=== PATIENT | male | born 1965 | race Caucasian/White ===

== ENCOUNTER 2020-06-24 08:01 | Inpatient (IN) ==
--- NOTE | 2020-06-11 15:51 | PAT Medication Instructions ---
Medication Instructions Date of Service June 11, 2020 Home Medications gabapentin 600 mg PO TID metformin 500 mg PO BID naproxen [Naprosyn] 500 mg PO BID omeprazole 40 mg PO QAM ASK your surgeon for instructions naproxen [Naprosyn] 500 mg PO BID DO NOT take the morning of surgery metformin 500 mg PO BID Take morning of surgery With a small sip of water, OTHERWISE NOTHING TO EAT OR DRINK AFTER MIDNIGHT: gabapentin 600 mg PO TID omeprazole 40 mg PO QAM Take evening before surgery gabapentin 600 mg PO TID metformin 500 mg PO BID Other Notes If you have any questions please call us at [phone] or [phone] or [phone] or [phone]
--- NOTE | 2020-06-13 12:01 | Anesthesiology Consultation ---
Date of Service June 13, 2020 Assessment & Plan (1) Encounter for pre-operative examination: Chart Review Chart Review: Acceptable Risk for Surgery (pending preop Covid testing ) and Patient seen in Pre Admission Testing - Check BSG AM DOS Per PAT appt on 06/13/20, patient denies any recent travel or large group activities. No known Covid positive contacts or Covid related symptoms. No known Covid infection in the past 90 days. Preop Covid testing scheduled 06/18/20= will await results. Educated on importance of self quarantining, social distancing and wearing mask in public both for the patient and household contacts. Teaching & Discussion Pre-Anesthesia Teaching/Discussion Notes: Instructed NPO after midnight before surgery,except medications with 15 cc of water. Medication instructions provided according to the [facility] guidelines. History Surgery Operation Date: 06/24/20 09:00 Proposed Procedures p Right Anterior Total Hip Arthroplasty - Henrry Luna DO Height/Weight Height: 5 ft 8 in Weight: 116.8 kg Allergies Allergy/AdvReac Type Severity Reaction Status Date / Time No Known Allergies Allergy Verified 06/10/20 08:01 Medications Home Medications Medication Instructions Recorded Confirmed Last Taken gabapentin 600 mg PO TID 06/10/20 06/10/20 Unknown metformin 500 mg PO BID 06/10/20 06/10/20 Unknown naproxen [Naprosyn] 500 mg PO BID 06/10/20 06/10/20 Unknown omeprazole 40 mg PO QAM 06/10/20 06/10/20 Unknown Past Medical History Medical History (Updated 06/14/20 @ 13:55 by Alice Azar PA-C) GERD (gastroesophageal reflux disease) Well controlled and stable Osteoarthritis Peripheral neuropathy Pre-diabetes On Metformin - Hgb A1C 06/13/20 was 7.0 (DIABETIC RANGE) Exercise / Class Metabolic Activity II 4-5 Yardwork/Stairs/Walk up hill (one flight of stairs- no chest pain or SOB ) Past Family History Family History Other No family history of adverse response to anesthesia Past Surgical History Surgical History History of arthroscopy RT KNEE History of colonoscopy History of tooth extraction Past Anesthesia History No Hx of Anesthesia Complications and No Family Hx of Anesthesia Complications History of PONV No Hx of PONV and No Hx of Motion Sickness Social History Smoking Status: Current every day smoker tobacco type: cigarettes and smokeless tobacco Smoking cigarettes per day: 10 CIG DAILY Do You Dip or Chew Tobacco: Yes (1 CAN EVERY 2 DAYS) Hx Alcohol Use: Yes Alcohol type: beer alcohol intake frequency: holidays/special occasions only Hx Substance Use: No substance use type: does not use Review of Systems Occ snoring - no witnessed apnea- no hx of sleep study Patient denies chest pain, shortness of breath, dyspnea on exertion, cough, wheezing, palpitations. No hx of seizures, stroke, IA. No hx of blood clots or blood transfusions Physical Exam Vital Signs VITALS BP 147/87 P 68 TEMP 98.3 SP02 96% RESP 16 Constitutional no acute distress ENMT Mouth: no TMJ clicking Thyromental Distance: > or= 3.5 Finger Breadths (4.0) Mallampati Class: II Missing most teeth Neck + limited neck extension (mild ) and + facial hair (minimal- did encourage pt to keep trimmed ) Respiratory normal respiratory effort; no respiratory distress Auscultation: lungs clear to auscultation bilaterally; no wheezes Cardiovascular Rate/Rhythm: regular rate and regular rhythm Heart Sounds: no murmur Vessels: no carotid bruit Musculoskeletal Spine: no pain with cervical ROM Extremities: extremities normal to inspection Psychiatric Orientation: alert Testing Laboratory Results 06/13/20 12:10 06/13/20 12:10 PT 10.0 Seconds (9.0-12.0) 06/13/20 12:10 INR 1.0 (0.9-1.1) 06/13/20 12:10 APTT 24.9 Seconds (21.0-31.0) 06/13/20 12:10 Hemoglobin A1c 7.0 % (4.5-5.6) H 06/13/20 12:10 Urine Color Yellow 06/13/20 Unknown Urine Appearance Clear (Clear) 06/13/20 Unknown Urine pH 5.0 (4.5-7.5) 06/13/20 Unknown Ur Specific [place] 1.031 (1.000-1.030) H 06/13/20 Unknown Urine Protein Negative (Negative) 06/13/20 Unknown Urine Glucose (UA) Negative (Negative) 06/13/20 Unknown Urine Ketones Negative (Negative) 06/13/20 Unknown Urine Nitrite Negative (Negative) 06/13/20 Unknown Ur Leukocyte Esterase Negative (Negative) 06/13/20 Unknown Blood Type O Positive 06/13/20 12:10 Antibody Screen NEGATIVE 06/13/20 12:10 Electrocardiogram Date: 06/13/20 Findings: + SB @ (58bpm) Otherwise normal EKG. Chest X-Ray Date: 06/13/20 Findings: + NAD
--- NOTE | 2020-06-13 12:29 | XRay Report ---
TWO VIEW CHEST CLINICAL HISTORY: Preoperative examination. FINDINGS: PA and lateral chest radiographs are obtained. No prior studies are available for compariso n at the time of dictation. The cardiomediastinal silhouette is unremarkable. The lungs and pleural spaces are clear. There is no pneumothorax. The bony thorax appears intact. Degenerative change is n oted in the thoracic spine. IMPRESSION: No active disease in the chest. ACT 112: Negative or not required by law. Electronically signed by: Lenny Pollack M.D. 06/13/2020 12:27 PM
[2020-06-13 12:40] LABS: Basophils # (auto) 0.03 K/uL (0-0.2); Basophils % (auto) 0.4 %; Eosinophils # (auto) 0.23 K/uL (0-0.5); Eosinophils % (auto) 2.8 %; Hemoglobin 14.3 g/dL (14.0-18.0); Immature Granulocytes # (auto) 0.02 K/uL (0.00-0.02); Immature Granulocytes % (auto) 0.2 %; Lymphocytes # (auto) 2.47 K/uL (1.2-3.4); Lymphocytes % (auto) 29.9 %; Mean Corpuscular Hemoglobin 32.7 pg (25-34); Mean Corpuscular Hgb Conc 35.8 g/dL (32-36); Mean Corpuscular Volume 91.5 fL (80-100); Monocytes # (auto) 0.97 K/uL (0.11-0.59); Monocytes % (auto) 11.7 %; Neutrophils # (auto) 4.54 K/uL (1.4-6.5); Platelet Count 247 K/uL (130-400); RDW Coefficient of Variation 13.6 % (11.5-14.5); RDW Standard Deviation 45.7 fL (36.4-46.3); Red Blood Count 4.37 M/uL (4.7-6.1); White Blood Count 8.26 K/uL (4.8-10.8)
[2020-06-13 12:44] LABS: Appearance Urine Clear (Clear); Bilirubin Urine Negative (Negative); Blood Urine Negative (Negative); Color Urine Yellow; Glucose Urine UA Negative (Negative); Ketones Urine Negative (Negative); Leukocyte Esterase Urine Negative (Negative); Nitrite Urine Negative (Negative); Protein Urine Negative (Negative); Specific Gravity Urine 1.031 (1.000-1.030); Urobilinogen Urine Negative (Negative)
[2020-06-13 12:51] LABS: Partial Thromboplastin Ratio 0.9; Partial Thromboplastin Time 24.9 Seconds (21.0-31.0)
[2020-06-13 12:59] LABS: Estimated Average Glucose 154 mg/dl
[2020-06-13 13:09] LABS: BUN Creatinine Ratio 21.8 (10-20); Calcium 8.8 mg/dl (8.5-10.1); Est GFR (African American) 96.8; Est GFR (Non-African American) 83.5
--- NOTE | 2020-06-14 12:53 | Electrocardiogram Report ---
Test Reason : Blood Pressure : / mmHG Vent. Rate : 058 BPM Atrial Rate : 058 BPM P-R Int : 134 ms QRS Dur : 104 ms QT Int : 410 ms P-R-T Axes : 055 081 080 degrees QTc Int : 402 ms Sinus bradycardia Otherwise normal ECG No previous ECGs available Confirmed by Glenn Ledezma ([id number]) on 06/14/2020 12:52:50 PM Referred By: Henrry Luna Confirmed By:Glenn Ledezma
--- NOTE | 2020-06-22 21:15 | History & Physical Report ---
Date of Service June 24, 2020 Assessment & Plan (1) Degenerative joint disease of right hip: I have indicated the patient for right anterior total hip replacement. The risks, benefits and complications of surgery were explained to the patient which include but not limited to infection, acute blood loss, DVT/PE, injury to nerves, vessels, bone, soft tissue, arthrofibrosis, chronic pain, failure of the prosthesis, hip dislocation, leg length discrepancy, need for additional surgery, cardiac and pulmonary events and . The patient wished to proceed with surgery and informed consent was obtained at this time. We will plan for 81mg ASA BID post-operatively for DVT prophylaxis. Upon discharge the patient will be discharged home with home health services. Appropriate clearances by PCP were obtained. History of Present Illness Chief Complaint: Right hip pain/DJD/AVN Primary Care Provider: CALI PCP The patient is a 55 year old male who presents with complaints of severe right hip pain and DJD. The patient has failed outpatient conservative treatments to this point which included NSAIDs, IA corticosteroid injection, home exe rcise/walking program. The patient's pain and limited function have progressed to the point where they severely hinder their activities of daily living and they no longer tolerate exercise programs. They are requesting to proceed with total hip replacement surgery. Allergies Allergy/AdvReac Type Severity Reaction Status Date / Time No Known Allergies Allergy Verified 06/24/20 08:47 Home Medications Medication Instructions Recorded Confirmed Type gabapentin 600 mg PO TID 06/10/20 06/24/20 History metformin 500 mg PO BID 06/10/20 06/24/20 History naproxen [Naprosyn] 500 mg PO BID 06/10/20 06/24/20 History omeprazole 40 mg PO QAM 06/10/20 06/24/20 History Past Med/Surg History Medical History GERD (gastroesophageal reflux disease) Well controlled and stable Obesity Osteoarthritis Peripheral neuropathy Pre-diabetes On Metformin - Hgb A1C 06/13/20 was 7.0 (DIABETIC RANGE) Surgical History History of arthroscopy RT KNEE History of colonoscopy History of tooth extraction Family History Other No family history of adverse response to anesthesia Social History Smoking Status: Current every day smoker Cigarettes Per Day: 10 CIG DAILY; Second Hand Exposure: Yes ( SMOKES); Do You Dip or Chew Tobacco: Yes (1 CAN EVERY 2 DAYS); Tobacco Cessation Education Requested by Patient: No Hx Alcohol Use: Yes Alcohol type: beer Hx Substance Use: No Preferred Language: Setswana Director Housekeeping Required: No Beliefs That Will Affect Care: None Current Living Situation: Family Current Living Situation Comment: AND SON Feels Safe at Home: Yes Safety Concerns: Feels Safe At This Time Assistive Devices: None Review of Systems Review of Systems: All systems reviewed & are unremarkable except as noted in HPI & below Constitutional: as per Subjective / HPI Physical Exam Physical Exam: RLE NVSI +EHL/FHL/TA/GS SILT grossly, +2 DP pulse, compartments soft NT, limited painful ROM of the hip, antalgic gait. Results & Data Results & Data ([facility]) Diagnostic Findings Multiple views of the hip demonstrates severe DJD with complete loss of the joint space and AVN of the femoral head. +osteophytes, +sclerosis, +subchondral cysts. Pre Admission Testing Addendum Laboratory Results 06/13/20 12:10 06/13/20 12:10 PT 10.0 Seconds (9.0-12.0) 06/13/20 12:10 INR 1.0 (0.9-1.1) 06/13/20 12:10 APTT 24.9 Seconds (21.0-31.0) 06/13/20 12:10 Hemoglobin A1c 7.0 % (4.5-5.6) H 06/13/20 12:10 Urine Color Yellow 06/13/20 Unknown Urine Appearance Clear (Clear) 06/13/20 Unknown Urine pH 5.0 (4.5-7.5) 06/13/20 Unknown Ur Specific [place] 1.031 (1.000-1.030) H 06/13/20 Unknown Urine Protein Negative (Negative) 06/13/20 Unknown Urine Glucose (UA) Negative (Negative) 06/13/20 Unknown Urine Ketones Negative (Negative) 06/13/20 Unknown Urine Nitrite Negative (Negative) 06/13/20 Unknown Ur Leukocyte Esterase Negative (Negative) 06/13/20 Unknown Blood Type O Positive 06/13/20 12:10 Antibody Screen NEGATIVE 06/13/20 12:10
[~2020-06-24 08:01] MED LIST: ACETAMINOPHEN 500 MG TAB PO SCH; CeleBREX 200 MG CAP PO SCH; FAMOTIDINE 20 MG TAB PO SCH; GABAPENTIN 900 MG DOSE PO SCH; LR 500ML BOLUS, THEN 15ML/HR IV SCH; METOCLOPRAMIDE HCL 10 MG TABLET PO SCH; ROPIVACAINE 0.5% HCL/PF 150 MG, BUPIVACAINE 0.75% MPF 20 ML, EPINEPHrine 30MG/30ML (OR ... INFIL SCH; TRANEXAMIC ACID 1,000 MG **IV Intra-op IV SCH; TRANEXAMIC ACID 1,000 MG **IV Pre-op IV SCH; ceFAZolin 2000MG 2,000 MG/15 ML SYR IV SCH
--- NOTE | 2020-06-24 09:30 | History & Physical Bridge Note ---
Date of Service June 24, 2020 History & Physical Bridge Note I have examined the patient, reviewed the History & Physical and in the interval since the performance of the History & Physical I have noted the following changes of clinical significance: no changes noted
[2020-06-24] MEDS ORDERED: PROPOFOL IV EMULSION 10 MG/ML 20 ML VIAL IV ONE ×6 (09:40→13:55)
[2020-06-24] MEDS ORDERED: LIDOCAINE HCL 2% 2 ML VIAL/AMP(20MG/ML) INFIL ONE (09:40)
[2020-06-24] MEDS ORDERED: MIDAZOLAM HCL 1 MG/ML 2ML VIAL ONE ×2 (09:41→12:46)
[2020-06-24] MEDS ORDERED: fentaNYL citrate 100 MCG/2 ML VIAL ONE ×2 (09:41→13:55)
[2020-06-24] MEDS ORDERED: ORTHO JOINT ANESTHETIC ONE (09:58)
[2020-06-24] MEDS ORDERED: BACITRACIN INJ 50,000 UNIT VIAL ONE (09:58)
[2020-06-24] MEDS ORDERED: PHENYLEPHRINE 100MCG/ML 5ML SYR IV PRN (10:00)
[2020-06-24] MEDS ORDERED: HYDROmorphone INJ 1 MG/ML SYRINGE IV PRN (10:00)
[2020-06-24] MEDS ORDERED: fentaNYL citrate 100 MCG/2 ML VIAL IV PRN (10:00)
[2020-06-24] MEDS ORDERED: MEPERIDINE HCL 25 MG/ML CARP/VIAL IV PRN (10:00)
[2020-06-24] MEDS ORDERED: LABETALOL HCL IV 5 MG/ML 20ML IV PRN (10:00)
[2020-06-24] MEDS ORDERED: ePHEDrine sulfate 50 MG/ML AMP IV PRN (10:00)
[2020-06-24] MEDS ORDERED: ATROPINE SULFATE 0.1 MG/ML 10ML SYR IV PRN (10:00)
[2020-06-24] MEDS ORDERED: ONDANSETRON INJ 2 MG/ML 2 ML VIAL IV PRN ×2 (10:00→15:50)
[2020-06-24] MEDS ORDERED: KETAMINE 50 MG/5 ML SYRINGE ONE (13:53)
--- NOTE | 2020-06-24 14:07 | Fluoroscopy Report ---
FL hip RT 1V CLINICAL HISTORY: RT ANTERIOR HIP COMPARISON STUDY: None. FLUOROSCOPY TIME: 1 minute and 21 seconds.. FINDINGS: 2 fluoroscopic spot images of the right hip demonstrate a right total hip arthroplasty. The hardware is intact. No fracture or dislocation. IMPRESSION: Fluoroscopy provided for right total hip arthroplasty. ACT 112: Negative or not required by law. Electronically signed by: Nahid Newsome M.D. 06/24/2020 2:06 PM
--- NOTE | 2020-06-24 14:09 | Post Operative Brief Note ---
Immediate Post Op Note v1 Date of Surgery June 24, 2020 Pre & Post Diagnosis Operation Date: 06/24/20 11:00 Pre-Op Diagnosis: Ostearthritis, Right Hip Post-Op Diagnosis: Ostearthritis, Right Hip I identified the patient and participated in the time-out.: Yes Procedure Operation Date: 06/24/20 11:00 Actual Procedures p Right Anterior Total Hip Arthroplasty(Right) - Henrry Luna DO Surgeon Henrry Luna DO Casino Operations Supervisor Jean-Paul Collins Estimated Blood Loss 235 Findings Consistent with Post-Op Diagnosis Specimens femoral head Anesthesia Type Spinal MAC Complications none Disposition Disposition: Recovery Room Overlapping Procedure I was present for: the critical portions of procedure. I was immediately available: during the entire case. Back up surgeon: was not required during procedure.
--- NOTE | 2020-06-24 14:11 | Operative Report ---
Post Operative Report Pre & Post Diagnosis Operation Date: 06/24/20 11:00 Pre-Op Diagnosis: Ostearthritis, Right Hip Post-Op Diagnosis: Ostearthritis, Right Hip I identified the patient and participated in the time-out.: Yes Procedure Operation Date: 06/24/20 11:00 Actual Procedures p Right Anterior Total Hip Arthroplasty(Right) - Henrry Luna DO Surgeon Henrry Luna DO Tour Sales Representative Jean-Paul Collins Estimated Blood Loss 235 Findings Consistent with Post-Op Diagnosis Specimens femoral head Anesthesia Type Spinal MAC Complications none Disposition Disposition: Recovery Room Indications The patient is a 55-year-old male who presents with severe progressive right hip DJD/AVN who has failed outpatient conservative treatments. I indicated the patient for a anterior total hip replacement and the risks and benefits were e xplained in detail which include but not limited to infection, bleeding, blood clot, damage to surrounding bone, nerves, vessels, soft tissue, hip dislocation, failure of the prosthesis, leg length discrepancy, need for additional surgery and . The patient agreed to proceed with replacement of the hip and informed consent was obtained. Appropriate clearances were obtained. Description of Procedure COMPONENTS USED: [employer] hip system: Acetabulum size 64, femur size 11 extended offset, femoral head 36+3.5, liner 64x36, acetabular screw 25 mm x 2. DESCRIPTION OF PROCEDURE: Following satisfactory spinal anesthesia, the patient was placed supine on the OR table. The left leg was placed in the well leg wright and the right leg in the traction device. The right leg was prepared with ChloraPrep and draped sterilely. A surgical timeout was performed, patient identified and site jim verified. Appropriate antibiotics were given. A standard anterior approach in the interval between the sartorius and tensor muscles was performed. Dissection was carried down through subcutaneous tissues. Electrocautery was utilized for hemostasis. Circumflex femoral vessels were identified, tied and ligated. The anterior capsular fat pad was removed and the capsulotomy was performed revealing the arthritic femoral neck and head. A femoral neck cut was made with reciprocating saw and the bone fragments removed. The acetabular self-retraining retractor was placed. Acetabular reaming was completed under fluoroscopic guidance, a 64 shell was impacted into an anatomic position and secured with a acetabular screw. Local anesthetic was placed and following irrigation, the polyethylene liner was placed. The femur was placed into position of external rotation, extension and adduction. Femoral canal was prepared up to the size 11 extended offset. Trial reduction with a 36+3.5 neck length head showed good soft tissue tension, leg lengths restored, and good fit and fill of the proximal canal using fluoroscopic landmarks. The hip was dislocated. The trial component was removed. The final implant was placed. The hip was irrigated with sterile saline solution and reduced. A Betadine soak was performed. After 3 minutes, the hip was once more irrigated with copious sterile saline solution with bacitracin. Jaimie-incisional soft tissue was injected utilizing [place] Orthomix which includes a combination of Ropivicaine 0.5% 150mg, Bupivicaine 0.5%/Epinephrine 1:200,000 30ml, Toradol 30mg, Dexamethasone 4mg, Ketamine 10mg, Clonidine 100mcg and NSS 30ml solution. The capsule was then closed with 1-0 Vicryl interrupted figure of eight sutures. The fascia was closed with a running suture of #1 Vicryl, the subcutaneous tissues with 2-0 Vicryl and the skin was closed with kiley and a sterile dry dressing was applied which included Angely incisional VAC. The patient tolerated the procedure well and was transported to PACU in stable condition. Due to the complex nature of the procedure, the entire surgery was performed with the operational assistance of Jean-Paul Collins PA-C. The title assistant, under direct supervision, was involved in the actual performance of all aspects of the surgical procedure including patient positioning, hemostasis, tissue retraction, instrument management and wound closure. I attest to the content of the Intraoperative Record and any orders documented therein. Any exceptions are noted below.
[2020-06-24] MEDS ORDERED: PHARMACY GLYCEMIC MGMT CONSULT PRN (14:49)
--- NOTE | 2020-06-24 14:53 | Anesthesiology Progress Note ---
Date of Service June 24, 2020 Anesthesia Post Procedure Vital Signs Vital Signs: Temp Pulse Pulse Resp BP Pulse Ox 06/24/20 14:50 63 16 122/79 98 06/24/20 14:40 70 12 131/85 99 06/24/20 14:34 36.3 C L 75 12 113/80 99 06/24/20 08:49 36.5 C 56 L 20 143/89 H 96 Pain Intensity Right Hip: Pain Intensity: 0 Transfer of Care Handoff Completed per policy Notes Mental Status: alert / awake / arousable and participated in evaluation Patient Amnestic to Procedure: Yes Nausea / Vomiting: adequately controlled Pain: adequately controlled Airway Patency, RR, SpO2: stable & adequate BP & HR: stable & adequate Hydration State: stable & adequate Neuraxial Anesthesia: was administered and sensory block is resolving Anesthetic Complications: no major complications apparent and Pt Satisfied with anesthetic care
[2020-06-24] MEDS ORDERED: GLUCOSE 10 TABS/TUBE PO PRN (15:00)
[2020-06-24] MEDS ORDERED: DEXTROSE 50% 50 ML SYRINGE IV PRN (15:00)
[2020-06-24] MEDS ORDERED: GLUCAGON FOR INJ 1 MG VIAL IM PRN (15:00)
[2020-06-24] MEDS ORDERED: CARBOHYDRATES FOR HYPOGLYCEMIA PO PRN (15:00)
[2020-06-24] MEDS ORDERED: GLUCOSE 40% GEL 15 GM TUBE PO PRN (15:00)
--- NOTE | 2020-06-24 15:10 | XRay Report ---
XR hip 1V RT w pelvis HISTORY: 55 years-old Male IN PACU - A/P PELVIS and LATERAL HIP right hip total joint arthroplasty COMPARISON: Fluoroscopic images of the right hip of same day TECHNIQUE: AP view of the pelvis with 2 views of the right hip FINDINGS: Right hip total joint arthroplasty demonstrates satisfactory alignment. No acute fracture or retained opaque foreign body identified. Associated postsurgical soft tissue swelling and deep tissue air. Ov erlying skin kiley are noted along with surgical drainage catheter.. IMPRESSION: Right hip total joint arthroplasty with expected postoperative changes. ACT 112: Negative or not required by law. The above report was generated using voice recognition software. It may contain grammatical, syntax o r spelling errors. Electronically signed by: Emiliano Lopez M.D. 06/24/2020 3:08 PM
[2020-06-24] MEDS ORDERED: bisacodyL 10 MG SUPP PR PRN (15:50)
[2020-06-24] MEDS ORDERED: SODIUM CHLORIDE 0.9% 1000ML 1,000 ML IV SCH (15:50)
[2020-06-24] MEDS ORDERED: METOCLOPRAMIDE HCL INJ 5 MG/ML 2 ML VIAL IV PRN (15:50)
[2020-06-24] MEDS ORDERED: diphenhydrAMINE Capsule 25 MG CAP PO PRN (15:50)
[2020-06-24] MEDS ORDERED: NALOXONE HCL 0.4 MG/1 ML VIAL/CARP IV PRN (15:50)
[2020-06-24] MEDS ORDERED: MAGNESIUM HYDROXIDE SUSP 30 ML UDC PO PRN (15:50)
[2020-06-24] MEDS: KETOROLAC TROMETHAMINE 15 MG/ML VIAL IV SCH ×2 (16:50→22:42)
--- NOTE | 2020-06-24 17:01 | Orthopedic Progress Note ---
Date of Service June 24, 2020 Assessment & Plan (1) Degenerative joint disease of right hip: Status post right anterior total hip arthroplasty Ancef x24 DVT prophylaxis: SCDs, teds, 81 mg ASA twice daily Weight-bear as tolerates right lower extremity PT/OT Postoperative x-ray demonstrates well aligned well fixed prosthesis without fracture or dislocation A.m. labs DC planning Admission and Anticipated Discharge Date Admission Date: June 24, 2020 Subjective Post Operative Progress Note Patient seen sitting up in bed, comfortable, denies complaints, pain well controlled, no acute issues. Review of Systems Review of Systems: All systems reviewed & are unremarkable except as noted in HPI & below Constitutional: as per Subjective / HPI Physical Exam Physical Exam: RLE NVSI +EHL/FHL/TA/GS SILT grossly, +2 DP pulse, compartments soft NT, dressing cdi. Constitutional: WD/WN, vitals as above Results & Data ([facility]) Vital Signs (Past 12 Hours) Vital Signs Temp Pulse Pulse Resp BP Pulse Ox 06/24/20 16:10 56 L 16 156/94 H 98 06/24/20 15:40 36.3 C L 60 16 133/78 96 06/24/20 15:25 62 15 127/86 95 06/24/20 15:20 76 15 121/81 95 06/24/20 15:10 36.5 C 66 16 123/77 97 06/24/20 15:00 73 15 155/84 H 100 06/24/20 14:50 63 16 122/79 98 06/24/20 14:40 70 12 131/85 99 06/24/20 14:34 36.3 C L 75 12 113/80 99 06/24/20 08:49 36.5 C 56 L 20 143/89 H 96
[2020-06-24] MEDS: oxyCODONE HCL IR 5 MG TAB (IMMEDIATE RELEASE) PO PRN ×2 (17:18→20:55)
[2020-06-24] MEDS: INSULIN ASPART 100 UNITS/ML 3 ML PEN SC SCH ×2 (18:05→21:07)
[2020-06-24] MEDS: HYDROmorphone INJ 0.5 MG/0.5 ML SYR IV PRN ×2 (18:13→22:42)
[2020-06-24] MEDS: ceFAZolin 2000MG 2,000 MG/15 ML SYR IV SCH (19:52)
[2020-06-24] MEDS: GABAPENTIN 600 MG TAB PO SCH (20:55)
[2020-06-24] MEDS: DOCUSATE SODIUM 100 MG CAP PO SCH (20:55)
[2020-06-24] MEDS: ACETAMINOPHEN 500 MG TAB PO SCH (20:56)
[2020-06-24] MEDS ORDERED: SENNA 8.6 MG TAB PO SCH (21:00)
[2020-06-24] MEDS ORDERED: LANTUS PER UNIT CHARGE SQ SCH (21:00)
[2020-06-25] MEDS: oxyCODONE HCL IR 5 MG TAB (IMMEDIATE RELEASE) PO PRN ×4 (02:49→15:46)
[2020-06-25] MEDS: ceFAZolin 2000MG 2,000 MG/15 ML SYR IV SCH (03:32)
[2020-06-25] MEDS: HYDROmorphone INJ 0.5 MG/0.5 ML SYR IV PRN (05:34)
[2020-06-25] MEDS: ACETAMINOPHEN 500 MG TAB PO SCH ×2 (05:34→13:40)
[2020-06-25] MEDS: KETOROLAC TROMETHAMINE 15 MG/ML VIAL IV SCH ×2 (05:34→10:54)
[2020-06-25 06:17] LABS: Basophils # (auto) 0.01 K/uL (0-0.2); Basophils % (auto) 0.1 %; Eosinophils # (auto) 0.06 K/uL (0-0.5); Eosinophils % (auto) 0.4 %; Hematocrit (blood only) 34.6 % (42-52); Hemoglobin 11.9 g/dL (14.0-18.0); Immature Granulocytes # (auto) 0.03 K/uL (0.00-0.02); Immature Granulocytes % (auto) 0.2 %; Lymphocytes # (auto) 1.83 K/uL (1.2-3.4); Lymphocytes % (auto) 13.3 %; Mean Corpuscular Hemoglobin 31.8 pg (25-34); Mean Corpuscular Hgb Conc 34.4 g/dL (32-36); Mean Corpuscular Volume 92.5 fL (80-100); Mean Platelet Volume 8.7 fL (7.4-10.4); Monocytes # (auto) 1.25 K/uL (0.11-0.59); Monocytes % (auto) 9.1 %; Neutrophils # (auto) 10.53 K/uL (1.4-6.5); Neutrophils % (auto) 76.9 %; Platelet Count 209 K/uL (130-400); RDW Coefficient of Variation 13.7 % (11.5-14.5); RDW Standard Deviation 46.3 fL (36.4-46.3); Red Blood Count 3.74 M/uL (4.7-6.1); White Blood Count 13.71 K/uL (4.8-10.8)
[2020-06-25 06:43] LABS: BUN Creatinine Ratio 16.6 (10-20); Calcium 8.5 mg/dl (8.5-10.1); Creatinine Clr Calc Pharmacy 112.7 ml/min; Est GFR (African American) 93.5; Est GFR (Non-African American) 80.7
[2020-06-25] MEDS: GABAPENTIN 600 MG TAB PO SCH ×2 (07:35→13:40)
[2020-06-25] MEDS: DOCUSATE SODIUM 100 MG CAP PO SCH (07:35)
[2020-06-25] MEDS: INSULIN ASPART 100 UNITS/ML 3 ML PEN SC SCH ×2 (08:29→12:39)
[2020-06-25] MEDS ORDERED: ASPIRIN 81 MG ECTAB PO SCH (09:00)
[2020-06-25] MEDS ORDERED: MULTIVITAMIN TAB PO SCH (09:00)
[2020-06-25] MEDS ORDERED: PANTOprazole 40 MG TAB PO SCH (09:00)
--- NOTE | 2020-06-25 09:16 | Orthopedic Progress Note ---
Date of Service June 25, 2020 Assessment & Plan (1) Degenerative joint disease of right hip: Status post right anterior total hip arthroplasty POD#1 Ancef x24 DVT prophylaxis: SCDs, teds, 81 mg ASA twice daily Weight-bear as tolerates right lower extremity PT/OT Postoperative x-ray demonstrates well aligned well fixed prosthesis without fracture or dislocation A.m. labs - as above, hgb 11.9 DC planning - home with HH Admission and Anticipated Discharge Date Admission Date: June 24, 2020 Subjective Post Operative Progress Note Patient seen sitting up in bed, comfortable, denies complaints, patient admits to 7 out of 10 pain however is controlled with pain medication, no acute issues. Denies F/C/N/V/SOB/CP. Review of Systems Review of Systems: All systems reviewed & are unremarkable except as noted in HPI & below Constitutional: as per Subjective / HPI Physical Exam Physical Exam: RLE NVSI +EHL/FHL/TA/GS SILT grossly, +2 DP pulse, compartments soft NT, dressing cdi. Constitutional: WD/WN, vitals as above Results & Data ([facility]) Vital Signs (Past 12 Hours) Vital Signs Temp Pulse Resp BP Pulse Ox 06/25/20 07:05 36.7 C 65 16 122/76 95 06/25/20 02:41 36.8 C 79 17 118/74 96 06/24/20 22:39 36.8 C 75 16 142/88 H 97 Diagnostic Findings 06/25/20 06/25/20 06/25/20 Range/Units 08:05 06:03 06:03 WBC 13.71 H (4.8-10.8) K/uL RBC 3.74 L (4.7-6.1) M/uL Hgb 11.9 L (14.0-18.0) g/dL Hct 34.6 L (42-52) % MCV 92.5 (80-100) fL MCH 31.8 (25-34) pg MCHC 34.4 (32-36) g/dL RDW Std Deviation 46.3 (36.4-46.3) fL RDW Coeff of Kim 13.7 (11.5-14.5) % Plt Count 209 (130-400) K/uL MPV 8.7 (7.4-10.4) fL Immature Gran % (Auto) 0.2 % Neut % (Auto) 76.9 % Lymph % (Auto) 13.3 % [place] % (Auto) 9.1 % Eos % (Auto) 0.4 % Baso % (Auto) 0.1 % Neut # (Auto) 10.53 H (1.4-6.5) K/uL Lymph # (Auto) 1.83 (1.2-3.4) K/uL [place] # (Auto) 1.25 H (0.11-0.59) K/uL Eos # (Auto) 0.06 (0-0.5) K/uL Baso # (Auto) 0.01 (0-0.2) K/uL Immature Gran # (Auto) 0.03 H (0.00-0.02) K/uL Sodium 137 (136-145) mmol/L Potassium 4.0 (3.5-5.1) mmol/L Chloride 106 (98-107) mmol/L Carbon Dioxide 26 (21-32) mmol/L Anion Gap 5.0 (3-11) BUN 17 (7-18) mg/dl Creatinine 1.05 (0.6-1.4) mg/dl Est Cr Clr Drug Dosing 112.7 ml/min Est GFR ( Amer) 93.5 Est GFR (Non-Af Amer) 80.7 BUN/Creatinine Ratio 16.6 (10-20) Glucose 154 H (70-99) mg/dl POC Glucose 191 H (70-99) mg/dl Calcium 8.5 (8.5-10.1) mg/dl 06/24/20 06/24/20 Range/Units 20:43 16:27 WBC (4.8-10.8) K/uL RBC (4.7-6.1) M/uL Hgb (14.0-18.0) g/dL Hct (42-52) % MCV (80-100) fL MCH (25-34) pg MCHC (32-36) g/dL RDW Std Deviation (36.4-46.3) fL RDW Coeff of Kim (11.5-14.5) % Plt Count (130-400) K/uL MPV (7.4-10.4) fL Immature Gran % (Auto) % Neut % (Auto) % Lymph % (Auto) % [place] % (Auto) % Eos % (Auto) % Baso % (Auto) % Neut # (Auto) (1.4-6.5) K/uL Lymph # (Auto) (1.2-3.4) K/uL [place] # (Auto) (0.11-0.59) K/uL Eos # (Auto) (0-0.5) K/uL Baso # (Auto) (0-0.2) K/uL Immature Gran # (Auto) (0.00-0.02) K/uL Sodium (136-145) mmol/L Potassium (3.5-5.1) mmol/L Chloride (98-107) mmol/L Carbon Dioxide (21-32) mmol/L Anion Gap (3-11) BUN (7-18) mg/dl Creatinine (0.6-1.4) mg/dl Est Cr Clr Drug Dosing ml/min Est GFR ( Amer) Est GFR (Non-Af Amer) BUN/Creatinine Ratio (10-20) Glucose (70-99) mg/dl POC Glucose 148 H 108 H (70-99) mg/dl Calcium (8.5-10.1) mg/dl
--- NOTE | 2020-06-25 09:50 | Pharmacy Report ---
Pharmacy Glycemic Short Note 2 - Date of Service June 25, 2020 - Glycemic Short BSG Results (Last 24 hours): 06/24/20 06/24/20 06/25/20 16:27 20:43 06:03 Glucose 154 H POC Glucose 108 H 148 H 06/25/20 08:05 Glucose POC Glucose 191 H OUTPATIENT ANTIDIABETIC REGIMEN: * Metformin 500mg PO BIDM * A1c = 7% on 06/13/20 ASSESSMENT: * 55yo T2DM male with adequate outpatient control per recent A1c * Pt is maintained on oral antidiabetic agents as an outpatient * Oral agents are not recommended for inpatient use d/t drug interactions, changing PO intake, and difficulty titrating for acute hyper/hypoglycemia. ADA recommends re-initiating outpatient oral agents 1-2 days prior to discharge if/when appropriate if they were held on admission. * Will hold oral agents for admission and utilize SQ basal bolus insulin regimen which is the recommended regimen for inpatient glycemic control. * Will initiate weight based insulin dosing for insulin claude patient and titrate based on BSG trends. * Basal insulin held last evening for BSG < 180 mg/dl * Will re-initiate metformin today as pt tolerating PO and renal function WNL * Goal is to maintain BSGs <200 mg/dl (ideally <150 mg/dl) to prevent post op complications PLAN FOR INPATIENT GLYCEMIC CONTROL: * Held metformin POD#0 * Resume Metformin POD#1 PM * Basal insulin * N/A; held last evening when BSG < 180 * not needed today since pt dc home today * Bolus insulin * NovoLog per scale ACHS or Q6hrs while NPO * Goal Range: Low 110 mg/dL - High 140 mg/dL * Correction Factor: 25 mg/dL/unit * Nutritional / Prandial insulin per carb ratio of 1 unit per 8 grams CHO consumed PLAN FOR DISCHARGE: * Resume metformin
[2020-06-25] MEDS ORDERED: metFORMIN HCL 500 MG TAB PO SCH (17:00)
--- NOTE | 2020-06-25 17:23 | Discharge Summary ---
Date of Service June 25, 2020 Admission HPI Per Admitting Provider The patient is a 55 year old male who presents with complaints of severe right hip pain and DJD. The patient has failed outpatient conservative treatments to this point which included NSAIDs, IA corticosteroid injection, home exercise/walking program. The patient's pain and limited function have progressed to the point where they severely hinder their activities of daily living and they no longer tolerate exercise programs. They are requesting to proceed with total hip replacement surgery. Principal Diagnosis Right anterior total hip replacement -Right hip DJD/AVN Discharge Exam RLE NVSI +EHL/FHL/TA/GS SILT grossly, +2 DP pulse, compartments soft NT, dressing cdi. Constitutional WD/WN, vitals as above Discharge Data Allergies Allergy/AdvReac Type Severity Reaction Status Date / Time No Known Allergies Allergy Verified 06/24/20 08:47 Procedures Performed Operation Date: 06/24/20 11:00 Actual Procedures p Right Anterior Total Hip Arthroplasty(Right) - Henrry Luna DO Ordered Studies 06/24/20 11:00 FL fluoroscopy <1hr Routine FL hip RT 1V Routine Hospital Course (1) Degenerative joint disease of right hip: The patient is a 55 -year-old male who presents with long standing history of severe right hip DJD/AVN and failed outpatient conservative treatments. The patient's symptoms have progressed to the point where it has been difficult to perform even normal activities of daily living. I indicated the patient for a right anterior total hip arthroplasty, the risks, benefits and complications of the procedure include but not limited to infecti on, bleeding, damage to bone, nerves, vessels, surrounding soft tissue, may develop blood clots, loss of function, leg length discrepancy, dislocation, failure of the components, loosening of the components, the need for additional surgery and . The patient wished to proceed with surgery at this time and informed consent was obtained. Hospital Course: On 06/24/20 the patient was taken to the operating room, adequate anesthesia administered and underwent a right anterior total hip arthroplasty. The patient tolerated the procedure well and was taken to the PACU in stable condition. P ost-operatively the patient was started on a DVT ppx medication and given appropriate IV antibiotics. Consults were placed to physical therapy, occupational therapy and case management. On POD#1, the patient did well overnight and their pain was well controlled. Labs were drawn and the Hgb was 11.9. The patient progressed well with PT. Dressings were changed at this time and the incision was clean, dry and intact. On POD#2, The patients hospital stay was relatively uneventful and they were deemed stable by the orthopedic team and consultants to be discharged home with HH on 06/25/20. Discharge Instructions: Upon discharge the patient may weight bear as tolerates through their operative extremity. They were instructed to keep the incision clean and dry at all times. The patient may shower but should not submerge the incision, avoid bathing, pools and hot tubs. The patient was given a script for pain medication and should take as instructed. The patient was given a script for DVT ppx 81mg ASA BID and should take as directed. The patient was instructed to not drive or travel for long distances until cleared to do so. If the patient develops any symptoms of fevers, chills, nausea, vomiting, increased redness, swelling, pain or drainage from the surgical site, they should notify the office and/or proceed to the nearest emergency room. The patient should follow up in 10-14 days after surgery for their routine post-operative follow-up appointment and should call the office, to confirm the date and time. Status post right anterior total hip arthroplasty POD#1 Ancef x24 DVT prophylaxis: SCDs, teds, 81 mg ASA twice daily Weight-bear as tolerates right lower extremity PT/OT Postoperative x-ray demonstrates well aligned well fixed prosthesis without fracture or dislocation A.m. labs - as above, hgb 11.9 DC planning - home with Total Time Total Time Spent Total Time Spent (In Minutes): 30 Discharge Plan Discharge Items Patient Disposition: Home - Home Health Services Reason For Visit: Ostearthritis, Right Hip Discharge Diagnosis: Right anterior total hip replacement Condition on Discharge: Good Activity: Per Instructions section Lifting: Wait until after follow-up appointment Bathing: Keep incision dry Bathing Comment: No bathing, pools or hot tubs. Sexual Activity: Wait until after follow-up appointment Exercise/Sports: Wait until after follow-up appointment Driving/Machine Use: No driving. Weightbearing: Full weightbearing Non-emergency contact: Primary Care Provider and Surgeon Call non-emergency contact if: you have any medication questions, your symptoms worsen, your pain is not controlled, your pain is worsening, your pain is unusual for you, your pain is concerning for you, you have a fever, your temperature is above 101, your wound has increased redness, your wound has increased drainage and your wound pain has increased Follow-up/Referrals: PCP,NO [Primary Care Provider] - Diet: Carb Consistent or DM2 Addtl Attending Provider Instructions: ACTIVITY RECOMMENDATIONS: SELF CARE INSTRUCTIONS AFTER TOTAL HIP REPLACEMENT : Direct Anterior Approach Until the incision and soft tissues around your hip have healed, there is a possibility that the hip prosthesis could dislocate. A. Hip flexion ( Up & Down out of chair or steps ) may be difficult. This is normal. B. Numbness in front of the thigh is also normal for a few weeks. C. Use hand rails when walking on stairs. D. Wear low heeled shoes with non-slip soles. E. Be sure that your floors are free of things that could trip you - throw rugs, electrical cords, small objects. Avoid wet and waxed floors, especially with crutches and canes. F. Try to walk several times a day with rest periods between. G. Continue with all the exercises taught to you in the hospital. Again, make walking a part of your daily routine. SPECIAL CARE INSTRUCTIONS: VERY IMPORTANT TO READ AND REVIEW A. You may still be at risk for phlebitis and blood clots. 1. Wear surgical stockings (FLORI hose) for 2 weeks after surgery to improve circulation and reduce swelling. 2. Take Aspirin 81mg twice daily for 4 weeks or as directed by your doctor. This is your blood thinner. 3. High risk patients may be prescribed a stronger blood thinner if necessary. 4. If you are on Coumadin normally, your family doctor/rope tier should monitor your blood work. Expect a phone call the day of or the day after bloodwork is drawn to adjust your dosage. B. You must take antibiotics before having dental work, bladder, bowel and other surgery. Your doctor will provide you with a permanent card to carry describing precautions. C. Call [facility] if you have a fever, redness or swelling around the incision, cloudy drainage from incision, or sudden increase in pain in your hip, not relieved by your regular pain medication. D. Please call the office at if you have any concerns or questions about your operation or recovery. * YOU MAY SHOWER, NO TUB BATHS UNTIL CLEARED BY YOUR DOCTOR. - Keep an extra close eye on the top portion of your incision. Be sure to keep clean & dry. * WEAR FLORI HOSE 20 HOURS PER DAY FOR 2 WEEKS. * YOU MAY PROGRESS FROM A WALKER, TO A CANE, TO INDEPENDENT AT YOUR OWN PACE. * MOST PATIENTS WILL HAVE HOME NURSING FOR THERAPY. IF YOU DECIDE TO DO OUTPATIENT PHYSICAL THERAPY, PLEASE SCHEDULE THIS 3 TIMES PER WEEK. *PREVENA incisional vac is a special dressing covering your incision. This dressing provides a sterile dry environment while you are healing. The dressing is to be left in place for 7 days post-operatively. Your home nurse or surgeon will remove. If you develop any redness or blisters or have any questions notify your surgeon immediately. FOLLOW UP VISIT: If appointment is not already scheduled: Please call [facility] to make a follow-up appointment for 2 weeks after your surgery at . Pending Studies at Discharge: No Stand-Alone Forms: My [facility], Opioid Pain Management, Smoking Cessation Medications and DC Order Prescriptions: New acetaminophen 500 mg Tablet 1,000 mg PO Q8 PRN (Reason: fever or pain) Qty: 90 RF: 0 aspirin 81 mg Tablet,Delayed Release (Dr/Ec) 81 mg PO BID Qty: 56 RF: 0 celecoxib [Celebrex] 200 mg Capsule 200 mg PO BID PRN (Reason: pain/inflammation) Qty: 28 RF: 0 oxycodone 5 mg Tablet 5 mg PO Q6H MDD 4 PRN (Reason: pain) Qty: 30 RF: 0 sennosides [Senokot] 8.6 mg Tablet 17.2 mg PO HS PRN (Reason: constipation) Qty: 28 RF: 0 Continued metformin 500 mg Tablet 500 mg PO BID RF: 0 gabapentin 600 mg Tablet 600 mg PO TID RF: 0 omeprazole 40 mg Capsule,Delayed Release(Dr/Ec) 40 mg PO QAM RF: 0 Discontinued naproxen [Naprosyn] 500 mg Tablet 500 mg PO BID RF: 0 Discharge Orders: Discharge Order (Routine); Ordered 06/25/20 Ordered By: Henrry Jauregui/Other Patient Handouts: High Blood Sugar (Hyperglycemia), Hypoglycemia (Low Blood Sugar), Managing Type 2 Diabetes, 5 Steps for Eating Healthier, Managing Diabetes: The A1C Test Admission Data Admit Date/Time: 06/24/20 14:41 Attending Provider: Henrry Luna Admit Provider: Henrry Luna Primary Care Provider: PCP,NO Other Providers: [facility],Home [facility] Other Interventions: Discharge Summary Assessment (RN) Last Done: 06/25/20 14:56
[2020-06-25] MEDS ORDERED: CeleBREX 200 MG CAP PO SCH (21:00)
== END 2020-06-25 16:23 | disposition home health service (06) | DRG 470 ==
LOC: ASU 08:01 → 3E 08:01 → OBSVTOIN 14:41